=== PATIENT | female | born 1995 | race Caucasian/White ===

== ENCOUNTER 2020-04-13 04:37 | Emergency (ER) | payer SELFPAY ==
[~2020-04-13] VITALS: Ht 160 cm; Wt 52.2 kg
[2020-04-13 04:41] VITALS: BP 133/78
--- NOTE | 2020-04-13 05:00 | NUR ---
PT ASSESSMENT COMPLETED BY URSZULA, NO NURSING INTERVENTIONS NEEDED AT THIS TIME.
[2020-04-13 05:04] VITALS: BP 133/78
--- NOTE | 2020-04-13 05:04 | NUR ---
PATIENT BIB [facility] [employer]. PATIENT EXAMINED BY DR. YOUNG. PATIENT MEDICALLY CLEARED AND RELEASED IN CUSTODY IN STABLE CONDITION. ORIGINAL PRE-BOOK FORM GIVEN TO OFFICER Jayne NEWELL # [id number].
== END 2020-04-13 05:04 ==
LOC: MED 04:37
DX: S10.91XA Abrasion of unspecified part of neck, initial encounter (principal); S40.212A Abrasion of left shoulder, initial encounter; S00.81XA Abrasion of other part of head, initial encounter; Z02.89 Encounter for other administrative examinations; V89.2XXA Person injured in unspecified motor-vehicle accident, traffic, initial encounter; Y93.89 Activity, other specified; Y92.411 Interstate highway as the place of occurrence of the external cause; Y99.8 Other external cause status
CPT/HCPCS: 99283